=== PATIENT | male | born 1990 | race Caucasian/White ===

== ENCOUNTER 2018-03-26 09:05 | Emergency (ER) | payer SELFPAY | END 2018-03-26 09:59 | disposition home or self-care (01) | LOC: NAV ERS 09:05 | DX: R00.2 Palpitations (principal); F17.210 Nicotine dependence, cigarettes, uncomplicated | CPT/HCPCS: 93005 ==

== ENCOUNTER 2018-05-13 09:43 | Emergency (ER) | payer SELFPAY | END 2018-05-13 10:25 | disposition home or self-care (01) | LOC: NAV ERS 09:43 | DX: L23.7 Allergic contact dermatitis due to plants, except food (principal); F17.210 Nicotine dependence, cigarettes, uncomplicated | CPT/HCPCS: 99282 ==

== ENCOUNTER 2018-08-28 18:25 | Emergency (ER) | payer SELFPAY ==
[2018-08-28] MEDS ORDERED: Fluorescein Opthalmic Strip ONE (18:38)
[2018-08-28] MEDS ORDERED: Proparacaine 0.5% Opth 15 ML BOT ONE (18:38)
[2018-08-28] MEDS ORDERED: Gentamicin Ophth Soln 0.3% 5 ml Bottle ONE (19:01)
== END 2018-08-28 19:10 | disposition home or self-care (01) ==
LOC: NAV ERS 18:25
DX: S05.02XA Injury of conjunctiva and corneal abrasion without foreign body, left eye, initial encounter (principal); F17.210 Nicotine dependence, cigarettes, uncomplicated; X58.XXXA Exposure to other specified factors, initial encounter
CPT/HCPCS: 99283

== ENCOUNTER 2019-03-02 16:46 | Emergency (ER) | payer BC, SELFPAY ==
[2019-03-02] MEDS ORDERED: diphenhydrAMINE 25 MG CAP ONE (17:12)
[2019-03-02] MEDS ORDERED: predniSONE 20 MG TAB ONE (17:50)
== END 2019-03-02 17:53 | disposition home or self-care (01) ==
LOC: NAV ERS 16:46
DX: L23.7 Allergic contact dermatitis due to plants, except food (principal)
CPT/HCPCS: 99283; J7512; Q0163

== ENCOUNTER 2019-11-09 20:54 | Emergency (ER) | payer OTHER, SELFPAY ==
[2019-11-09] MEDS ORDERED: Ketorolac Tromethamine 30 MG/ML VIAL ONE (21:30)
--- NOTE | 2019-11-09 21:41 | RAD ---
TWO VIEW CHEST: History: Chest pain. FINDINGS: Lung fong are clear. Heart and mediastinum appear normal. Vascular markings normal. Osseous structu res appear normal. IMPRESSION: Negative chest. POS: AGW
[2019-11-09 22:07] LABS: CKMB 0.9 ng/mL (0-6.6)
== END 2019-11-10 01:03 | disposition home or self-care (01) ==
LOC: NAV ERS 20:54
DX: R07.9 Chest pain, unspecified (principal); F17.210 Nicotine dependence, cigarettes, uncomplicated
CPT/HCPCS: 71046; 82550; 82553; 84484; 93005; 96374; J1885